=== PATIENT | female | born 1960 | race Caucasian/White ===

== ENCOUNTER 2017-03-14 07:32 | Emergency (ER) | payer OTHER ==
[2017-03-14 07:41] VITALS: RESP 16; TEMP 98
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
[2017-03-14 08:34] VITALS: BP 108/72; PULSE 89
[2017-03-14 09:23] VITALS: O2SAT 99
--- NOTE | 2017-03-14 09:42 | RAD ---
PROCEDURE: Cervical Spine Radiographs. HISTORY: Pain. COMPARISON: None. FINDINGS: BONES: Cervical spine straightening. No subluxation apparent. No fracture. Dens Intact. C5-6 and lesser C6-7 anterior spondylosis is present DISC SPACES: C5-6 disc space narrowing SOFT TISSUES: Normal. No prevertebral soft tissue swelling. OTHER FINDINGS: None. IMPRESSION: Cervical spondylosis and degenerative disc space narrowing Cervical spine straightening. No fracture seen
== END 2017-03-14 08:34 | disposition home or self-care (01) ==
LOC: C.ER 07:32
DX: S13.4XXA Sprain of ligaments of cervical spine, initial encounter (principal); V89.2XXA Person injured in unspecified motor-vehicle accident, traffic, initial encounter

== ENCOUNTER 2019-02-06 14:50 | Outpatient (CLI) | payer OTHER | END 2019-02-06 14:51 | disposition home or self-care (01) | LOC: C.MAMMO 14:51 ==